=== PATIENT | male | born 1970 | race Caucasian/White ===

== ENCOUNTER → 2017-02-01 | Outpatient (CLI) | payer BC ==
[~2017-02-01] MED LIST: CYCL-375 PO; HYDR-3989 PO; IBUP-1724 PO; LISI1TAB9 PO; METF500T4 PO; TRAM50TA4 PO
--- NOTE | 2017-02-01 10:14 | DI ---
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 No acute fractures or malalignments are seen. Rest of the disc spaces are unremarkable. Impression: Postoperative changes of posterior fusion at L5-S1 with a disc spacer in place. No additional acute findings. .
== END ==
LOC: IMA 08:37
PROVIDERS: ATTEND Neurological Surgery
DX: M51.37 Other intervertebral disc degeneration, lumbosacral region (principal); Z98.1 Arthrodesis status